=== PATIENT | female | born 1960 | race Caucasian/White ===

== ENCOUNTER 2017-08-12 08:51 | Day surgery (SDC) | payer OTHER ==
[2017-08-11 15:25] VITALS: BP 140/61
[2017-08-11 15:26] LABS: BASOPHILS % (AUTO) 0.9 % (0.0-5.0); EOSINOPHILS % (AUTO) 2.6 % (0.0-8.0); HEMATOCRIT 42.2 % (36-48); MEAN CORPUSCULAR HEMOGLOBIN 30.1 pg (27.0-33.0); MEAN CORPUSCULAR HGB CONC 34.1 g/dL (32.0-36.0); MONOCYTES % (AUTO) 8.2 % (3.0-13.0); NEUTROPHILS % (AUTO) 50.3 % (40.0-77.0); NUCLEATED RED BLOOD CELLS 0.1 % (0.0-0.19); PLATELET COUNT (AUTO) 231 K/uL (130-400); RED BLOOD CELL COUNT(AUTO) 4.79 MIL/uL (4.00-5.50); RED CELL DISTRIBUTION WIDTH 14.5 % (11.0-15.5); WHITE BLOOD COUNT (AUTO) 6.8 K/uL (4.8-10.8)
[2017-08-11 15:36] LABS: CREATININE 0.9 mg/dL (0.5-1.5); POTASSIUM 4.2 mmol/L (3.5-5.1)
[2017-08-12] VITALS (15 sets, daily range): BP systolic 120–167; BP diastolic 40–67
[~2017-08-12] VITALS: Ht 165.1 cm; Wt 102.1 kg
[~2017-08-12 08:51] MED LIST: ACET-66 PO; ASPI-1197 PO; ESTROGEN PO; FISH OIL PO; NAPR-1023 PO; PRILOSEC PO; ROSU10TA PO; SERT25TA PO
[2017-08-12] MEDS ORDERED: CEFAZOLIN 3GM /D5W 100ML 100 ML IV SCH (10:00)
[2017-08-12] MEDS ORDERED: LACTATED RINGERS 1000ML 1,000 ML IV ONE (10:01)
[2017-08-12] MEDS: CEFAZOLIN SODIUM 1 GM VIAL ONE ×2 (10:08→12:10)
[2017-08-12] MEDS ORDERED: EPINEPHRINE 1 MG/ML 30ML VIAL IJ ONE (10:19)
[2017-08-12] MEDS ORDERED: MIDAZOLAM HCL 1 MG/ML 2ML VIAL ONE (10:54)
[2017-08-12] MEDS ORDERED: FENTANYL CITRATE PF 50 MCG/1 ML 2ML VIAL ONE ×2 (10:54→14:04)
[2017-08-12] MEDS ORDERED: ROPIVACAINE 0.5% 5MG/ML 30ML IJ ONE (10:56)
[2017-08-12] MEDS ORDERED: EPHEDRINE SULFATE 50 MG/ML AMPULE ONE (11:48)
[2017-08-12] MEDS ORDERED: CEFAZOLIN SODIUM 1 GM VIAL ONE (12:08)
[2017-08-12] MEDS: OCTYL 2-CYANOACRYLATE 1 EACH TP ONE (13:25)
[2017-08-12] MEDS ORDERED: MEPERIDINE-PF 25 MG/ML SYG ONE (13:51)
[2017-08-12] MEDS ORDERED: CEPH500B PO (14:27)
[2017-08-12] MEDS ORDERED: NAPR-1023 PO (14:27)
[2017-08-12] MEDS ORDERED: HYDR-309 PO (14:27)
== END 2017-08-12 16:45 | disposition home or self-care (01) ==
LOC: DAH 08:51
PROVIDERS: ATTEND Orthopaedic Surgery
DX: M75.32 Calcific tendinitis of left shoulder (principal); M75.52 Bursitis of left shoulder; M19.012 Primary osteoarthritis, left shoulder; M75.42 Impingement syndrome of left shoulder; M25.812 Other specified joint disorders, left shoulder; E78.5 Hyperlipidemia, unspecified; Z90.49 Acquired absence of other specified parts of digestive tract; Z90.710 Acquired absence of both cervix and uterus; Z82.49 Family history of ischemic heart disease and other diseases of the circulatory system; Z86.73 Personal history of transient ischemic attack (TIA), and cerebral infarction without residual deficits; Z80.9 Family history of malignant neoplasm, unspecified; Z91.048 Other nonmedicinal substance allergy status
CPT/HCPCS: 29824; 29826; 36415; 80048; 85025; A4218; A4565; A4649 ×3; A4930; A6204; J0171; J0690 ×2; J2175; J2250; J2795; J3010 ×2; J3490; J7030; J7120

== ENCOUNTER → 2017-11-18 | Outpatient (CLI) | payer OTHER ==
[~2017-11-18] MED LIST changes: -ACET-66 PO; +CEPH500B PO; +HYDR-309 PO
== END | disposition home or self-care (01) ==
LOC: RAH 09:27
PROVIDERS: ATTEND Internal Medicine
DX: Z12.31 Encounter for screening mammogram for malignant neoplasm of breast (principal)
CPT/HCPCS: 77067

== ENCOUNTER → 2020-01-14 | Outpatient (CLI) | payer SELFPAY ==
[~2020-01-14] MED LIST changes: -HYDR-309 PO; +HYDR-4457 PO; +IOHEXOL-350 75 ML VIAL IV ONE; -ROSU10TA PO; +ROSU10TA22 PO
== END | disposition home or self-care (01) ==
LOC: RAH 07:29
PROVIDERS: ATTEND Internal Medicine
DX: K57.30 Diverticulosis of large intestine without perforation or abscess without bleeding (principal); K44.9 Diaphragmatic hernia without obstruction or gangrene; I70.0 Atherosclerosis of aorta; M47.814 Spondylosis without myelopathy or radiculopathy, thoracic region; R19.7 Diarrhea, unspecified; Z90.49 Acquired absence of other specified parts of digestive tract; Z90.710 Acquired absence of both cervix and uterus
CPT/HCPCS: 74178; Q9967

== ENCOUNTER → 2020-06-04 | Outpatient (CLI) | payer OTHER ==
[~2020-06-04] MED LIST changes: -IOHEXOL-350 75 ML VIAL IV ONE
== END | disposition home or self-care (01) ==
LOC: RAH 13:44
PROVIDERS: ATTEND Internal Medicine
DX: Z12.31 Encounter for screening mammogram for malignant neoplasm of breast (principal); S46.911A Strain of unspecified muscle, fascia and tendon at shoulder and upper arm level, right arm, initial encounter; M65.811 Other synovitis and tenosynovitis, right shoulder; Y93.89 Activity, other specified; Y92.89 Other specified places as the place of occurrence of the external cause; Y99.8 Other external cause status
CPT/HCPCS: 73030; 77067

== ENCOUNTER → 2022-05-10 | Outpatient (CLI) | payer OTHER | END | disposition home or self-care (01) | LOC: RAH 14:12 | PROVIDERS: ATTEND Internal Medicine | DX: Z12.31 Encounter for screening mammogram for malignant neoplasm of breast (principal) | CPT/HCPCS: 77067 ==

== ENCOUNTER → 2024-06-11 | Outpatient (CLI) | payer BC ==
[~2024-06-11] MED LIST changes: -NAPR-1023 PO; +NAPR-1194 PO
--- NOTE | 2024-06-11 09:56 | HMCIMG ---
Exam Type: MAMMO SCREENING BILATERAL Clinical Information: ROUTINE SCREENING Comparison: May 10, 2022 Technique: Mammogram with CAD was performed with CC and MLO projections. CAD shows no worrisome regions. FINDINGS: The breasts are heterogeneously dense, which may obscure small masses. No dominant mass or suspicious microcalcification identified. There is no nipple retraction or skin thickening. Benign-appearing calcifications are seen. CAD shows no worrisome regions. IMPRESSION: 1. No mammographic signs of malignancy. 2. Routine follow-up recommended. CATEGORY 2: BENIGN FINDINGS Note: A negative x-ray should not delay biopsy if a dominant or clinically suspicious mass is present, since 8-10% of cancers are not identified by mammography. Dense breasts may obscure an underlying neoplasm.
== END | disposition home or self-care (01) ==
LOC: RAH 08:51
PROVIDERS: ATTEND Internal Medicine
DX: Z12.31 Encounter for screening mammogram for malignant neoplasm of breast (principal); R92.333 Mammographic heterogeneous density, bilateral breasts
CPT/HCPCS: 77067